=== PATIENT | female | born 1950 | race Hispanic/Latino ===

== ENCOUNTER 2017-01-14 14:15 | Outpatient (CLI) | payer MEDICAID ==
--- NOTE | 2017-01-15 08:31 | Magnetic Resonance Report ---
MRI CERVICAL SPINE WITHOUT CONTRAST: 01/14/17 14:30:00 CLINICAL: Neck pain. Herniated disc. TECHNIQUE: Sagittal T1,T2 and STIR and axial gradient T2* sequences on a 1.5 Jolie magnet. FINDINGS:Normal vertebral body alignment through T4. Mild degenerative change with slight decreased vertebral body height and small osteophytes from C3-4 through C6-7. The disc spaces are preserved. The marrow signal is normal. Spinal cord is normal size with normal signal. No cord lesion. A similar tonsils are in normal position. C2-3: Intact. C3-4:Small focal central disc protrusion is in partial effacement of the thecal sac but no cord compression. Left facet hypertrophy and mild left neural foraminal narrowing. C4-5: Mild circumferential disc bulge producing partial effacement of the thecal sac but no cord compression. Right facet hypertrophy and right uncal osteophytes producing moderate right neural foraminal narrowing. C5-6:Mild circumferential disc bulge and small central posterior osteophytes producing partial effacement of the thecal sac but no cord compression. Left facet hypertrophy but minimal neural foraminal narrowing. C6-7:Circumferential disc bulge producing partial effacement of the thecal sac but no cord compression. Mild bilateral facet hypertrophy and mild bilateral neural foraminal narrowing. C7-T1:Intact. IMPRESSION: 1. Small disc protrusions and disc bulges producing mild spinal canal stenosis from C3-4 through C6-7.2. Multilevel facet hypertrophy producing mild to moderate neural foraminal narrowing. The most significant narrowing is on the right at C4-5. 3. No cord lesion.
== END 2017-01-14 14:16 | disposition home or self-care (01) ==
LOC: MRI 14:15
PROVIDERS: ATTEND Psychiatry & Neurology Neurology
DX: M48.02 Spinal stenosis, cervical region (principal); M50.20 Other cervical disc displacement, unspecified cervical region; M47.892 Other spondylosis, cervical region; M50.21 Other cervical disc displacement, high cervical region
CPT/HCPCS: 72141

== ENCOUNTER 2017-05-16 17:32 | Emergency (ER) | payer OTHER, MEDICAID ==
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
[2017-05-16 23:25] VITALS: BP 133/87
[2017-05-16] MEDS ORDERED: TORADOL IM ONE (23:40)
== END 2017-05-17 01:46 | disposition home or self-care (01) ==
LOC: ED 17:32
DX: S46.912A Strain of unspecified muscle, fascia and tendon at shoulder and upper arm level, left arm, initial encounter (principal); M62.838 Other muscle spasm; E11.9 Type 2 diabetes mellitus without complications; J45.909 Unspecified asthma, uncomplicated; I10 Essential (primary) hypertension; Z88.5 Allergy status to narcotic agent; V49.49XA Driver injured in collision with other motor vehicles in traffic accident, initial encounter; Y93.89 Activity, other specified; Y92.89 Other specified places as the place of occurrence of the external cause; Y99.8 Other external cause status
CPT/HCPCS: 96372; 99282; J1885

== ENCOUNTER 2017-06-11 15:52 | Outpatient (CLI) | payer MEDICAID ==
--- NOTE | 2017-06-11 21:01 | XRay Report ---
FINAL REPORT PROCEDURE: XR KNEE BILAT 3V TECHNIQUE: Three views each knee HISTORY: PAIN IN RIGHT KNEE , SWELLING LT KNEE COMPARISON: No prior studies are available for comparison. FINDINGS: Soft tissue swelling each knee. Small suprapatellar effusion on the left no significant on the right. Moderate degenerative changes of each knee with meniscal calcifications no acute fracture IMPRESSION: No fracture seen
== END 2017-06-11 15:53 | disposition home or self-care (01) ==
LOC: XRAY 15:52
PROVIDERS: ATTEND Orthopaedic Surgery
DX: M17.0 Bilateral primary osteoarthritis of knee (principal)

== ENCOUNTER 2017-08-01 10:47 | Day surgery (SDC) | payer MEDICAID ==
[~2017-08-01 10:47] MED LIST: ANCEF/STERILE WATER 2 GM/20 ML IV NR; MARCAINE 0.5% INFILTRATI ONE
[2017-08-01] MEDS: LACTATED RINGERS 1,000 ML IV SCH ×2 (12:00→14:33)
[2017-08-01] MEDS ORDERED: DEPO-MEDROL ONE (12:34)
[2017-08-01] MEDS ORDERED: MARCAINE 0.5% INFILTRATI ONE ×2 (12:34→13:05)
--- NOTE | 2017-08-01 12:38 | Anesthesia Day of Surgery ---
Anesthesia Day of Surgery - Day of Surgery Patient Examined: Yes Patient H&P Reviewed: Yes Patient is NPO: Yes
--- NOTE | 2017-08-01 12:39 | Anesthesia Consultation ---
Anesthesia Consult and Med Hx Date of service: 08/01/17 - Airway Anesthetic Teeth Evaluation: Good ROM Head & Neck: Adequate Mental/Hyoid Distance: Adequate Mallampati Class: Class I Intubation Access Assessment: Good - Pulmonary Exam CTA: Yes - Cardiac Exam Cardiac Exam: RRR - Pre-Operative Health Status ASA Pre-Surgery Classification: ASA2 Proposed Anesthetic Plan: General - Pulmonary Hx Smoking: No Hx Asthma: Yes (NEB PRN) SOB: Yes (SOB) Hx Sleep Apnea: No (NGUYỄN PRE SCREEN HIGH RISK.) - Cardiovascular System Hx Hypertension: Yes (X 3 YRS) Hx Peripheral Vascular Disease: Yes (LEG PAIN,STENT RT LEG) - Central Nervous System Hx Back Pain: Yes (NECK PAIN) Hx Psychiatric Problems: Yes - Endocrine Hx Liver Disease: Yes Hx Thyroid Disease: Yes Hx Hypothyroidism: Yes Hx Hyperthyroidism: Yes (ON DAILY MEDS) - Other Systems Hx Cancer: No
[2017-08-01] MEDS ORDERED: SUBLIMAZE ONE (12:40)
[2017-08-01] MEDS ORDERED: DIPRIVAN 10 MG/ML IV ONE (12:43)
[2017-08-01] MEDS ORDERED: ZOFRAN ONE (12:55)
[2017-08-01] MEDS ORDERED: ePHEDrine SULFATE ONE (12:55)
[2017-08-01] MEDS ORDERED: XYLOCAINE MPF 2% ONE (13:00)
[2017-08-01] MEDS ORDERED: NACL 0.9% IR ONE (13:13)
[2017-08-01] MEDS ORDERED: ZOFRAN IV PRN (13:53)
--- NOTE | 2017-08-01 13:54 | Post Anesthesia Evaluation ---
- Post Anesthesia Evaluation Patient Participated: Yes Airway Patent: Yes Stable Respiratory Function: Yes Nausea/Vomiting: No Temp > 96.8F: Yes Pain Manageable: Yes Adequeate Hydration: Yes Anesthesia Complications: No
--- NOTE | 2017-08-01 13:57 | Procedure Note ---
Date of procedure: 08/01/17 Pre-op diagnosis: left carpal tunnel syndrome Post-op diagnosis: same Procedure: Left endoscopic carpal tunnel release Procedure The patient was brought to the OR and placed on the OR table in supine position following induction with Mac anesthesia the patient's left upper extremity was prepped and draped in the usual sterile manner. A timeout procedure was done to identify the patient and the correct operative site. The arm was exsanguinated followed by inflation of the pneumatic tourniquet to 250 mmHg. A volar incision was made at the distal wrist crease using loupe magnificati the superficial tendon sheath was identified and using the dilators the carpal canal was entered following this the arthroscope was inserted in line with the fourth metacarpal the transverse carpal ligament was identified next the knife blade assembly was elevated and the ligament was released from distal to proximal this the wound was irrigated and a second look was performed there did not appear to be any residual impinging soft tissue off the median nerve. Routine closure was performed routine postop dressings were applied the patient tolerated the procedure there were no complications she was sent to postanesthesia recovery in a stable condition Anesthesia: MAC Surgeon: NEMESIO JACKSON Estimated blood loss: minimal Condition: stable Disposition: PACU
[2017-08-01] MEDS: DILAUDID IV PRN ×2 (14:00→14:10)
[2017-08-01] MEDS ORDERED: NORCO 5/325 PO PRN (14:35)
[2017-08-01] MEDS ORDERED: NORCO 5/325 ONE (14:40)
[2017-08-01] MEDS ORDERED: BENADRYL IV NR (14:58)
[2017-08-01] MEDS ORDERED: BENADRYL ONE (14:59)
[2017-08-01 17:11] VITALS: BP 140/73
== END 2017-08-01 16:40 | disposition home or self-care (01) ==
LOC: OR 10:47
PROVIDERS: ATTEND Orthopaedic Surgery
DX: G56.02 Carpal tunnel syndrome, left upper limb (principal); J45.909 Unspecified asthma, uncomplicated; I10 Essential (primary) hypertension; K21.9 Gastro-esophageal reflux disease without esophagitis; F41.9 Anxiety disorder, unspecified; E78.00 Pure hypercholesterolemia, unspecified; G43.909 Migraine, unspecified, not intractable, without status migrainosus; I73.9 Peripheral vascular disease, unspecified; Z79.899 Other long term (current) drug therapy; Z90.710 Acquired absence of both cervix and uterus; Z98.890 Other specified postprocedural states; Z79.82 Long term (current) use of aspirin; Z87.891 Personal history of nicotine dependence
CPT/HCPCS: 29848; 36415; 82962; 84132; J0690; J1170; J1200; J2405; J2704; J3010; J7120; J1030

== ENCOUNTER 2017-08-15 15:47 | Outpatient (CLI) | payer MEDICAID ==
--- NOTE | 2017-08-15 16:55 | XRay Report ---
FINAL REPORT PROCEDURE: Right shoulder. TECHNIQUE: Three views. HISTORY: PAIN IN RIGHT SHOULDER COMPARISON: No prior studies are available for comparison. FINDINGS: The bones appear intact without fracture or dislocation. The joint spaces appear normal. The soft tissues are unremarkable. IMPRESSION: No significant abnormality.
--- NOTE | 2017-08-15 21:35 | XRay Report ---
FINAL REPORT PROCEDURE: Right wrist. TECHNIQUE: AP and lateral views. HISTORY: Right wrist pain. COMPARISON: No prior studies are available for comparison. FINDINGS: The bones appear intact without fracture or dislocation. The joint spaces appear satisfactory. The soft tissues are unremarkable. IMPRESSION: Normal study.
== END 2017-08-15 15:48 | disposition home or self-care (01) ==
LOC: XRAY 15:47
PROVIDERS: ATTEND Orthopaedic Surgery
DX: M25.531 Pain in right wrist (principal); M25.511 Pain in right shoulder

== ENCOUNTER 2017-10-01 12:37 | Emergency (ER) | payer MEDICAID ==
[2017-10-01 12:47] VITALS: BP 136/86
[2017-10-01] MEDS ORDERED: NORCO 10/325 ONE (15:12)
[2017-10-01] MEDS ORDERED: ZOFRAN ODT ONE (15:12)
[2017-10-01] MEDS ORDERED: TORADOL IM ONE (15:44)
[2017-10-01 15:50] LABS: Bilirubin,Urine NEG (Negative); Blood,Urine NEG (Negative); Color,Urine Straw (Yellow); Protein,Urine <15 mg/dL mg/dL (Negative); Urobilinogen,Urine < 2.0 mg/dL (<2.0)
--- NOTE | 2017-10-01 17:25 | XRay Report ---
FINAL REPORT EXAM: XR SPINE LUMBOSACRAL 2-3V HISTORY: back pain s/p fall TECHNIQUE: 3 views of the lumbar spine PRIORS: None. FINDINGS: Multifocal postoperative change. Prominent stool may reflect constipation. There is slight mural calcified atherosclerotic plaque in the abdominal aorta. Vertebral compression fracture: None Anterolisthesis: None Retrolisthesis: None Disc narrowing: None Degenerative change: Multilevel at the vertebral endplates and facet joints. IMPRESSION: No acute skeletal pathology Multifocal degenerative disc and joint disease Prominent stool may reflect constipation
--- NOTE | 2017-10-01 18:02 | Emergency Department Report ---
ED Back Pain/Injury HPI - General Chief Complaint: Back Pain/Injury Stated Complaint: BACK PAIN/LEG NUMBNESS Time Seen by Provider: 10/01/17 15:36 Source: patient Limitations: No Limitations - History of Present Illness Initial Comments: Patient is a 66-year-old female who is presenting with back pain. Patient states that she has chronic back pain she takes hydrocodone and Flexeril. Patient states this morning she could hardly get out of bed. Patient states pain is 10 out of 10. Patient states there was no falls today but she fell twice within the last week. Patient denies any bowel or bladder dysfunction. Patient denies fever. Patient states it hurts worse when she moves and is better when she is still. - Related Data Home Medications Medication Instructions Recorded Confirmed Last Taken ALPRAZolam [Xanax TAB] 1 mg PO PRN PRN 01/03/13 07/25/17 08/01/17 08:45 Atenolol [Tenormin] 25 mg PO BID 01/03/13 07/25/17 08/01/17 08:45 Gabapentin [Neurontin] 100 mg PO BID 01/03/13 07/25/17 07/31/17 Omeprazole Magnesium [PriLOSEC] 40 mg PO QDAY 01/03/13 08/01/17 08/01/17 08:45 HYDROcodone/APAP 5-325 [Stollings 1 each PO Q8HR PRN 02/18/13 07/25/17 08/01/17 08: 45 5-325 mg TAB] ALBUTEROL NEB's [Proventil 0.083% 1 unit INHALATION PRN PRN 11/05/15 08/01/17 NEBS] Aspirin [Aspirin BABY CHEW TAB] 81 mg PO QDAY 11/05/15 07/25/17 07/31/17 Cilostazol [Pletal] 100 mg PO BID 11/05/15 07/25/17 07/31/17 traMADol [Ultram 50 MG tab] 50 mg PO BID PRN 11/05/15 07/25/17 07/31/17 Methimazole 2.5 mg PO DAILY 12/08/15 07/25/17 07/31/17 Cyclobenzaprine HCl [Flexeril 5 MG 5 mg PO PRN PRN 07/25/17 07/25/17 07/31/17 TAB] Fluticasone [Flonase] 1 spray NS QDAY 07/25/17 07/25/17 07/31/17 Rosuvastatin Calcium [Crestor] 40 mg PO QHS 07/25/17 07/25/17 07/31/17 Spironolactone [Aldactone] 25 mg PO QDAY 07/25/17 07/25/17 07/31/17 Zolpidem [Ambien] 10 mg PO QHS 07/25/17 07/25/17 07/31/17 Previous Rx's Medication Instructions Recorded Last Taken Type HYDROcodone/ACETAMINOPHEN 1 each PO Q4-6H #20 tablet 08/01/17 Unknown Rx [Hydrocodon-Acetaminophen 5-325] Allergies Allergy/AdvReac Type Severity Reaction Status Date / Time codeine Allergy Hives Verified 01/03/13 15:28 ED Review of Systems ROS: Stated complaint: BACK PAIN/LEG NUMBNESS Other details as noted in HPI Comment: All other systems reviewed and negative ED Past Medical Hx - Past Medical History Hx Hypertension: Yes (X 3 YRS) Hx Diabetes: Yes (NO MEDS) Hx GERD: Yes Hx Liver Disease: Yes Hx Arthritis: Yes Hx Headaches / Migraines: Yes (MIGRAINES) Hx Kidney Stones: Yes Hx Asthma: Yes (NEB PRN) Hx HIV: No Additional medical history: "muscle disease"-weak in the heart, pneumonia 2017 - Surgical History Hx Coronary Stent: Yes Hx Cholecystectomy: Yes Additional Surgical History: sinus surgery. colon surgery. hysterecomty. carpal tunnel right wrist - Social History Smoking Status: Never Smoker Substance Use Type: None - Medications Home Medications: Home Medications Medication Instructions Recorded Confirmed Last Taken Type ALPRAZolam [Xanax TAB] 1 mg PO PRN PRN 01/03/13 07/25/17 08/01/17 08:45 History Atenolol [Tenormin] 25 mg PO BID 01/03/13 07/25/17 08/01/17 08:45 History Gabapentin [Neurontin] 100 mg PO BID 01/03/13 07/25/17 07/31/17 History Omeprazole Magnesium [PriLOSEC] 40 mg PO QDAY 01/03/13 08/01/17 08/01/17 08:45 History HYDROcodone/APAP 5-325 [Stollings 1 each PO Q8HR PRN 02/18/13 07/25/17 08/01/17 08: 45 History 5-325 mg TAB] ALBUTEROL NEB's [Proventil 0.083% 1 unit INHALATION PRN PRN 11/05/15 08/01/17 History NEBS] Aspirin [Aspirin BABY CHEW TAB] 81 mg PO QDAY 11/05/15 07/25/17 07/31/17 History Cilostazol [Pletal] 100 mg PO BID 11/05/15 07/25/17 07/31/17 History traMADol [Ultram 50 MG tab] 50 mg PO BID PRN 11/05/15 07/25/17 07/31/17 History Methimazole 2.5 mg PO DAILY 12/08/15 07/25/17 07/31/17 History Cyclobenzaprine HCl [Flexeril 5 MG 5 mg PO PRN PRN 07/25/17 07/25/17 07/31/17 History TAB] Fluticasone [Flonase] 1 spray NS QDAY 07/25/17 07/25/17 07/31/17 History Rosuvastatin Calcium [Crestor] 40 mg PO QHS 07/25/17 07/25/17 07/31/17 History Spironolactone [Aldactone] 25 mg PO QDAY 07/25/17 07/25/17 07/31/17 History Zolpidem [Ambien] 10 mg PO QHS 07/25/17 07/25/17 07/31/17 History HYDROcodone/ACETAMINOPHEN 1 each PO Q4-6H #20 tablet 08/01/17 Unknown Rx [Hydrocodon-Acetaminophen 5-325] ED Physical Exam - General Limitations: No Limitations General appearance: alert, in no apparent distress - Head Head exam: Present: atraumatic, normocephalic - Eye Eye exam: Present: normal appearance - ENT ENT exam: Present: mucous membranes moist - Neck Neck exam: Present: normal inspection - Respiratory Respiratory exam: Present: normal lung sounds bilaterally. Absent: respiratory distress - Cardiovascular Cardiovascular Exam: Present: regular rate, normal rhythm. Absent: systolic murmur, diastolic murmur, rubs, gallop - GI/Abdominal GI/Abdominal exam: Present: soft, normal bowel sounds. Absent: distended, tenderness, guarding - Extremities Exam Extremities exam: Present: normal inspection - Back Exam Back exam: Present: normal inspection, tenderness (diffuse lumbar) - Neurological Exam Neurological exam: Present: alert, oriented X3 - Psychiatric Psychiatric exam: Present: normal affect, normal mood - Skin Skin exam: Present: warm, dry, intact, normal color. Absent: rash ED Course Vital Signs 10/01/17 12:40 Temperature 97.5 F L Pulse Rate 81 Respiratory 18 Rate Blood Pressure 136/86 O2 Sat by Pulse 18 L Oximetry ED Medical Decision Making - Radiology Data X-ray of the lumbar spine shows diffuse degenerative changes - Medical Decision Making Patient was given a Stollings shot of Toradol which did help her pain. Patient states she has pain pills and she has muscle relaxants at home. Patient was referred to a spinal surgeon for further management. Critical care attestation.: If time is entered above; I have spent that time in minutes in the direct care of this critically ill patient, excluding procedure time. ED Disposition Clinical Impression: Chronic back pain Qualifiers: Back pain location: low back pain Back pain laterality: unspecified Sciatica presence: without sciatica Qualified Code(s): M54.5 - Low back pain; G89.29 - Other chronic pain Disposition: DC-01 TO HOME OR SELFCARE Is pt being admited?: No Does the pt Need Aspirin: No Condition: Stable Referrals: MIRIAM VOGT MD [Referring] - 3-5 Days
--- NOTE | 2017-10-01 22:35 | Consultation ---
HISTORY OF PRESENT ILLNESS: This is a 66-year-old white female seen in the Emergency Room at [facility]. This patient is ordinarily followed by me in the office. I received a phone call concerning the patient's neurological symptoms, being unable to move both legs. On arrival in the Emergency Room, the patient provided 2 to 3-day history of being fatigued, experiencing energy problems, not being able to finish work around the house. She apparently woke up this morning, not able to move either leg. What is curious is that for the last several months, she has had periods of complete incontinence of bowel and bladder. 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 She denied any seizure, no fall, although she did have perhaps a slip injury when she was cleaning out the garage, twisting her lower back area and she states she feels like she may have herniated disk in lower back area. She does have intact sensation in her legs. She is weak in her legs. She has problems with walking and did state this morning what was quite different was that she was not able to stand and use her legs, but she does have intact sensation. She has not had symptoms such as this in the past. Her friend that she lives with is here with her. He thinks that she may have gotten exhausted and simply worked too hard over the past couple of days, sweeping out the garage. PHYSICAL EXAMINATION: NEUROLOGIC: On my examination of the patient, she is alert. She has 1+ and symmetrical reflexes. She has positional movement of the legs that is to say when they are propped up in a flexed position. She has motor tone in them, but I did not attempt to stand the patient. She has had x-rays of her back. Those results are not yet available. On seeing her, she does have intact motor movement with dorsiflexion and plantarflexion, flexion and extension at the hips. Cranial nerves 2-12 are intact. She is slightly sleepy. According to her, she did receive some medication for pain earlier today and feels a little sedated, but otherwise is quite responsive. IMPRESSION: New onset of bilateral leg weakness, which is certainly different than previous. I would recommend review of the x-rays at the discretion of the Emergency Room physician. She may need admission for further evaluation. One curious aspect to this case is bowel and bladder incontinence. This clearly predated the present issue with her leg strength. In the past, she has had multiple episodes of spinal radiculopathy in both the cervical, thoracic, and lumbar region and has had multiple workups for central canal stenosis, cervical and lumbar radiculopathy without any evidence, however, of a compression fracture or tumor. My recommendation is to further review x-rays, and we will make a determination after additional workup. JOB# [id number] CLARE/CAPRICE
== END 2017-10-01 18:17 | disposition home or self-care (01) ==
LOC: ED 12:37
DX: G89.29 Other chronic pain (principal); M54.9 Dorsalgia, unspecified; I10 Essential (primary) hypertension; E11.9 Type 2 diabetes mellitus without complications; K21.9 Gastro-esophageal reflux disease without esophagitis; M19.90 Unspecified osteoarthritis, unspecified site; G43.909 Migraine, unspecified, not intractable, without status migrainosus; J45.909 Unspecified asthma, uncomplicated; Z95.1 Presence of aortocoronary bypass graft; Z79.82 Long term (current) use of aspirin; Z88.6 Allergy status to analgesic agent
CPT/HCPCS: 72100; 81001; 96372; 99283; J1885; Q0162

== ENCOUNTER 2017-10-07 16:58 | Outpatient (CLI) | payer MEDICAID ==
--- NOTE | 2017-10-07 20:09 | XRay Report ---
FINAL REPORT EXAM: XR FOOT 3+V LT HISTORY: SUPERFICIAL FORIEGN BODY TECHNIQUE: 3 views Left foot PRIORS: None. FINDINGS: No fracture or dislocation identified. Joint spaces are within normal limits. No erosive bony change identified. No bony lesions are identified. No radiopaque foreign bodies are seen. Noted is a plantar calcaneal enthesophyte IMPRESSION: Heel spur No radiopaque foreign body identified
== END 2017-10-07 16:59 | disposition home or self-care (01) ==
LOC: XRAY 16:58
PROVIDERS: ATTEND Nurse Practitioner
DX: S90.851A Superficial foreign body, right foot, initial encounter (principal); M77.32 Calcaneal spur, left foot; F41.9 Anxiety disorder, unspecified; I10 Essential (primary) hypertension; E78.00 Pure hypercholesterolemia, unspecified; G47.30 Sleep apnea, unspecified; E03.9 Hypothyroidism, unspecified; Z98.890 Other specified postprocedural states; X58.XXXA Exposure to other specified factors, initial encounter; Y93.89 Activity, other specified; Y92.89 Other specified places as the place of occurrence of the external cause; Y99.8 Other external cause status

== ENCOUNTER 2017-10-14 12:08 | Outpatient (CLI) | payer MEDICAID ==
--- NOTE | 2017-10-14 13:36 | XRay Report ---
RIGHT WRIST, 3 VIEWS: RIGHT HAND, 3 VIEWS: History: Wrist pain, hand pain. Borderline to mild osteopenia is suspected in mild osteoarthritic changes are identified throughout the wrist and fingers. No erosive joint pathology. No evidence for fracture, malalignment or bone lesion. The soft tissues are unremarkable. IMPRESSION: No acute process. Borderline mild osteopenia. Mild osteoarthritis.
== END 2017-10-14 12:09 | disposition home or self-care (01) ==
LOC: XRAY 12:08
PROVIDERS: ATTEND Orthopaedic Surgery
DX: M25.532 Pain in left wrist (principal); M79.642 Pain in left hand; I73.9 Peripheral vascular disease, unspecified; F41.9 Anxiety disorder, unspecified

== ENCOUNTER 2017-10-31 16:00 | Outpatient (CLI) | payer MEDICARE ==
--- NOTE | 2017-11-01 08:15 | Magnetic Resonance Report ---
MR LOWER EXTREMITY JOINT LEFT WITHOUT CONTRAST HISTORY: Pain in left knee. TECHNIQUE: Multisequence, multiplanar MRI without contrast was performed through the left knee. COMPARISON: Bilateral knee films dated 06/11/17. FINDINGS: A moderate joint effusion is identified which extends to the suprapatellar bursa. A popliteal cyst is identified measuring 3.3 x 0.7 x 1.1 cm. The body of the medial meniscus is abnormal. There appears to be a horizontal tear with a medial flipped meniscus. There is also a vertical tear near the junction of the body and posterior horn. The lateral meniscus is unremarkable. The ACL, PCL, MCL, LCL complex and extensor complex are intact and unremarkable. There is mild to moderate cartilage thinning throughout all 3 compartments of the knee. There is suggestion of vague small osteochondral defect or focal complete cartilage loss in the medial retropatellar cartilage. There is subtle subchondral edema in the medial patella but no unstable fragment is identified. There is no evidence for acute fracture or suspicious bony lesion. 6 mm subchondral degenerative cyst in the posterior medial tibial plateau is noted. IMPRESSION: Joint effusion and popliteal cyst. Complex tear involving the body of the medial meniscus. A medial flipped meniscus is suspected. Chondromalacia patella, medial facet more affected. Moderate diffuse cartilage loss consistent with osteoarthritis.
--- NOTE | 2017-11-01 08:24 | Magnetic Resonance Report ---
MR UPPER EXTREMITY JOINT RIGHT WITHOUT CONTRAST HISTORY: Pain in right shoulder. TECHNIQUE: Multisequence, multiplanar MRI without contrast was performed through the right shoulder. COMPARISON: Right shoulder films dated 08/15/17. FINDINGS: The distal supraspinatus tendon is abnormal demonstrating diffuse increased signal and thickening consistent with underlying tendinosis. I suspect at least a 50% thickness partial tear along the articular surface of the distal supraspinatus tendon. I also suspect a pinhole full-thickness tear is present in this region. No large tear with retraction. There also appears to be an intrasubstance tear of the distal supraspinatus tendon at its insertion site on the proximal humerus. There is also suggestion of a focal full-thickness tear in the infraspinatus tendon distally measuring 3 mm. The subscapularis tendon and teres minor tendon are within normal limits. There is poor visualization of the horizontal portion of the long head of the biceps tendon but it appears intact. Its attachments on the superior labrum is within normal limits. No gross labral abnormality or SLAP lesion is identified. Moderate osteoarthritic changes are identified. Mild inferior spurring at the a.c. joint and small acromial spur are identified. 8mm subchondral degenerative cyst in the lateral humeral head just beneath the long head of the biceps tendon is noted. No evidence for fracture or suspicious bone lesion. Small joint effusion and small fluid in the subdeltoid bursa are identified. IMPRESSION: Osteoarthritis. Abnormal distal supraspinatus tendon, and to a lesser extent, the infraspinatus tendon. Focal full-thickness tears in both tendons are suspected as outlined above. There is also moderate underlying tendinosis of the distal supraspinatus tendon. Joint effusion. Small bursal fluid.
== END 2017-10-31 16:01 | disposition home or self-care (01) ==
LOC: MRI 16:00
PROVIDERS: ATTEND Orthopaedic Surgery
DX: M19.011 Primary osteoarthritis, right shoulder (principal); M25.411 Effusion, right shoulder; M25.462 Effusion, left knee; M71.22 Synovial cyst of popliteal space [Baker], left knee; I73.9 Peripheral vascular disease, unspecified; F41.9 Anxiety disorder, unspecified; I10 Essential (primary) hypertension; E78.00 Pure hypercholesterolemia, unspecified; J45.909 Unspecified asthma, uncomplicated; E03.9 Hypothyroidism, unspecified; Z88.6 Allergy status to analgesic agent
CPT/HCPCS: 73721

== ENCOUNTER 2017-11-07 16:18 | Outpatient (CLI) | payer MEDICARE ==
--- NOTE | 2017-11-07 16:56 | XRay Report ---
FINAL REPORT EXAM: XR FOOT 3+V RT HISTORY: PAIN IN RIGHT FOOT TECHNIQUE: 3 views of right foot. PRIORS: None. FINDINGS: Generalized osteopenia. No apparent fracture or dislocation. Joint spaces maintained. Mild plantar calcaneal spurring. Soft tissues grossly unremarkable. IMPRESSION: 1. No acute osseous abnormality.
== END 2017-11-07 16:19 | disposition home or self-care (01) ==
LOC: XRAY 16:18
PROVIDERS: ATTEND Nurse Practitioner
DX: M77.31 Calcaneal spur, right foot (principal); M85.88 Other specified disorders of bone density and structure, other site; I10 Essential (primary) hypertension; E78.2 Mixed hyperlipidemia; M81.0 Age-related osteoporosis without current pathological fracture; I73.9 Peripheral vascular disease, unspecified; F41.9 Anxiety disorder, unspecified; Z88.5 Allergy status to narcotic agent

== ENCOUNTER 2017-12-05 06:09 | Day surgery (SDC) | payer MEDICARE ==
[~2017-12-05 06:09] MED LIST changes: -ANCEF/STERILE WATER 2 GM/20 ML IV NR; +DEPO-Medrol INTRA-ARTI ONE; -MARCAINE 0.5% INFILTRATI ONE; +MARCAINE-EPI/PF 0.5%-1:200,000 IJ ONE
[2017-12-05] MEDS ORDERED: XYLOCAINE MPF 2% ONE (07:11)
[2017-12-05] MEDS ORDERED: DIPRIVAN 10 MG/ML IV ONE (07:11)
[2017-12-05] MEDS ORDERED: DILAUDID ONE ×2 (07:15→10:07)
[2017-12-05] MEDS ORDERED: ZOFRAN ONE (07:16)
[2017-12-05] MEDS ORDERED: DECADRON ONE (07:16)
--- NOTE | 2017-12-05 07:27 | Anesthesia Day of Surgery ---
Anesthesia Day of Surgery - Day of Surgery Patient Examined: Yes Patient H&P Reviewed: Yes Patient is NPO: Yes
--- NOTE | 2017-12-05 07:27 | Anesthesia Consultation ---
Anesthesia Consult and Med Hx Date of service: 12/05/17 - Airway Anesthetic Teeth Evaluation: Dentures ROM Head & Neck: Adequate Mental/Hyoid Distance: Adequate Mallampati Class: Class I Intubation Access Assessment: Probably Good - Pulmonary Exam CTA: Yes - Cardiac Exam Cardiac Exam: RRR - Pre-Operative Health Status ASA Pre-Surgery Classification: ASA2 Proposed Anesthetic Plan: General - Pulmonary Hx Smoking: Yes (STOPPED X 34 YRS) Hx Asthma: Yes (NEB PRN) SOB: Yes (SOB) Hx Sleep Apnea: No (NGUYỄN PRE SCREEN HIGH RISK.) - Cardiovascular System Hx Hypertension: Yes (X 3 YRS) Hx Peripheral Vascular Disease: Yes (LEG PAIN,STENT RT LEG) - Central Nervous System Hx Back Pain: Yes (NECK AND BACK PAIN- CHRONIC) Hx Psychiatric Problems: Yes - Endocrine Hx Liver Disease: Yes Hx Thyroid Disease: Yes - Other Systems Hx Cancer: No - Additional Comments Anesthesia Medical History Comments: Hx PONV.
[2017-12-05] MEDS ORDERED: VERSED IV PRN (07:28)
[2017-12-05] MEDS ORDERED: MARCAINE 0.5% INFILTRATI ONE (07:36)
[2017-12-05] MEDS ORDERED: DEPO-Medrol ONE (07:42)
[2017-12-05] MEDS ORDERED: MARCAINE-EPI 0.5%-1:200,000 INFILTRATI ONE (07:43)
[2017-12-05] MEDS ORDERED: ANCEF/STERILE WATER 2 GM/20 ML IV NR (07:50)
[2017-12-05] MEDS ORDERED: NACL 0.9% 1000 ML 1,000 ML IV SCH (08:00)
[2017-12-05] MEDS ORDERED: NACL 0.9% 1000 ML 1,000 ML ONE (09:00)
[2017-12-05] MEDS ORDERED: DEPO-Medrol INTRA-ARTI ONE (09:35)
[2017-12-05] MEDS ORDERED: MARCAINE-EPI/PF 0.5%-1:200,000 IJ ONE (09:35)
[2017-12-05] MEDS ORDERED: VERSED ONE (09:55)
--- NOTE | 2017-12-05 09:58 | Procedure Note ---
Date of procedure: 12/05/17 Pre-op diagnosis: internal derangement left knee Post-op diagnosis: other (torn medial and lateral meniscus) Procedure: Arthroscopy left knee partial medial and lateral meniscectomies Procedure Patient was brought to the or pleurisy or tubal supine position following induction and intubation anesthesia patient's left lower extremity was prepped and draped in the usual sterile manner , procedure was done to identify the patient and correct operative site. The leg was exsanguinated followed by instillation of the pneumatic tourniquet to 300 mmHg next routine arthroscopic portals were made following the introduction of the arthroscope and insufflation of the were normal saline solution examination revealed these findings #1 patient was noted review of slept tears in the posterior horn medial meniscus as well as grade 3 chondromalacia involving the distal portion of the medial condyle femur just slightly anterior to the posterior horn medial meniscus these 2 areas were debrided using arthroscopic shaver was taken to debrided back to healthy-appearing cartilage tissue The intercondylar notch was examined patient was noted to have intact anterior cruciate ligament PCL ligaments following this the knee was placed in a figure for position the lateral meniscus was seen and appeared to have again reveal flap tears noted in the posterior tibial portion of these tears were also debrided using the arthroscopic shaver the articular cartilage appeared to be in a relatively mild stable degeneration in addition the arthroscope was placed in the suprapatellar pouch and the epidural femoral joint was inspected there were no obvious pathology noted here following debridement and copious irrigation the arthroscopic instruments were removed via stab wounds were repaired with 3-0 nylon next a mixture of Depo-Medrol and Marcaine was injected followed by application of routine postop dressings. Patient tolerated the procedure minimal complications she was sent to postanesthesia recovery. Anesthesia: MAC Surgeon: NEMESIO JACKSON Estimated blood loss: minimal Condition: stable Disposition: PACU
[2017-12-05] MEDS ORDERED: PERCOCET 5/325 PO PRN (10:03)
[2017-12-05] MEDS ORDERED: ZOFRAN IV PRN (10:03)
[2017-12-05] MEDS ORDERED: TORADOL IV PRN (10:03)
[2017-12-05] MEDS: DILAUDID IV PRN ×3 (10:05→10:48)
[2017-12-05] MEDS ORDERED: TORADOL ONE (10:07)
[2017-12-05 11:42] VITALS: BP 113/61
== END 2017-12-05 14:00 | disposition home or self-care (01) ==
LOC: OR 06:09
PROVIDERS: ATTEND Orthopaedic Surgery
DX: S83.242A Other tear of medial meniscus, current injury, left knee, initial encounter (principal); S83.282A Other tear of lateral meniscus, current injury, left knee, initial encounter; M94.262 Chondromalacia, left knee; F41.9 Anxiety disorder, unspecified; E78.00 Pure hypercholesterolemia, unspecified; J45.909 Unspecified asthma, uncomplicated; G47.33 Obstructive sleep apnea (adult) (pediatric); K21.9 Gastro-esophageal reflux disease without esophagitis; M19.90 Unspecified osteoarthritis, unspecified site; E03.9 Hypothyroidism, unspecified; F32.9 Major depressive disorder, single episode, unspecified; Z87.891 Personal history of nicotine dependence; Z79.899 Other long term (current) drug therapy; Z79.82 Long term (current) use of aspirin; Z88.5 Allergy status to narcotic agent; Z88.8 Allergy status to other drugs, medicaments and biological substances; Z98.890 Other specified postprocedural states; Z90.49 Acquired absence of other specified parts of digestive tract; Z90.710 Acquired absence of both cervix and uterus; Z87.442 Personal history of urinary calculi; Z83.3 Family history of diabetes mellitus; Z82.61 Family history of arthritis; Z82.49 Family history of ischemic heart disease and other diseases of the circulatory system; V89.2XXA Person injured in unspecified motor-vehicle accident, traffic, initial encounter; Y93.89 Activity, other specified; Y92.89 Other specified places as the place of occurrence of the external cause; Y99.8 Other external cause status
CPT/HCPCS: 29882; 36415; 82962; 84132; 93005; 93010; J0690; J1040; J1100; J1170; J1885; J2250; J2405; J2704; J7030; J1030

== ENCOUNTER 2017-12-14 13:17 | Emergency (ER) | payer MEDICARE ==
[2017-12-14 13:31] VITALS: BP 117/69
--- NOTE | 2017-12-14 14:47 | XRay Report ---
FINAL REPORT EXAM: XR KNEE 3V LT HISTORY: post op left knee surgery 01-05-18, left knee drain TECHNIQUE: Frontal and lateral views of left knee. PRIORS: 11 June 2017. FINDINGS: Diffuse soft tissue emphysema noted about the knee and probably within the knee joint and mild surrounding soft tissue edema probably postsurgical. Mild medial and patellofemoral joint space narrowing and marginal spurring. No acute fracture, dislocation or obvious osseous destruction. IMPRESSION: 1. Postsurgical and mild degenerative changes.
--- NOTE | 2017-12-14 16:00 | Emergency Department Report ---
ED Extremity Problem HPI - General Chief complaint: Extremity Injury, Lower Stated complaint: RT KNEE INFECTION Time Seen by Provider: 12/14/17 15:19 Source: patient, family Mode of arrival: Wheelchair Limitations: Physical Limitation - History of Present Illness Initial comments: Patient is a 67-year-old female who is presenting with left knee pain. Patient had surgery on 12/05/2017 about the [place]. The laparoscopic surgery. Patient states for the last 2 days she has a yellow colored liquid coming from one of the wounds. Patient has some increased pain as well. Patient denies any fevers chills nausea vomiting or diarrhea at this time. - Related Data Home Medications Medication Instructions Recorded Confirmed Last Taken ALPRAZolam [Xanax TAB] 1 mg PO PRN PRN 01/03/13 12/02/17 12/04/17 Atenolol [Tenormin] 25 mg PO BID 01/03/13 12/05/17 12/05/17 05:15 Gabapentin [Neurontin] 100 mg PO BID 01/03/13 12/05/17 12/04/17 Omeprazole Magnesium [PriLOSEC] 40 mg PO QDAY 01/03/13 12/05/17 12/05/17 05:15 HYDROcodone/APAP 5-325 [[place] 1 each PO Q8HR PRN 02/18/13 12/05/17 12/05/17 05: 15 5-325 mg TAB] ALBUTEROL NEB's [Proventil 0.083% 1 unit INHALATION PRN PRN 11/05/15 12/05/17 NEBS] Aspirin [Aspirin BABY CHEW TAB] 81 mg PO QDAY 11/05/15 12/05/17 1 Week Ago ~11/28/17 Cilostazol [Pletal] 100 mg PO BID 11/05/15 12/02/17 12/04/17 traMADol [Ultram 50 MG tab] 50 mg PO BID PRN 11/05/15 12/02/17 12/04/17 methIMAzole [Methimazole] 2.5 mg PO DAILY 12/08/15 12/02/17 12/04/17 Fluticasone [Flonase] 1 spray NS QDAY 07/25/17 12/02/17 12/04/17 Rosuvastatin Calcium [Crestor] 40 mg PO QHS 07/25/17 12/02/17 12/04/17 Spironolactone [Aldactone] 25 mg PO QDAY 07/25/17 12/02/17 12/04/17 Zolpidem [Ambien] 10 mg PO QHS 07/25/17 12/02/17 12/04/17 Previous Rx's Medication Instructions Recorded Last Taken Type HYDROcodone/APAP 5-325 [[place] 1 each PO Q4HR PRN #20 tablet 12/05/17 Unknown Rx 5-325 mg TAB] Clindamycin [Clindamycin CAP] 300 mg PO Q8H 7 Days cap 12/14/17 Unknown Rx Ibuprofen [Motrin] 600 mg PO Q8H PRN #20 tablet 12/14/17 Unknown Rx Allergies Allergy/AdvReac Type Severity Reaction Status Date / Time codeine Allergy Hives Verified 01/03/13 15:28 cyclobenzaprine Allergy slows her Verified 12/05/17 07:21 [From Flexeril] breathing ED Review of Systems ROS: Stated complaint: RT KNEE INFECTION Other details as noted in HPI Comment: All other systems reviewed and negative ED Past Medical Hx - Past Medical History Previous Medical History?: Yes Hx Hypertension: Yes (X 3 YRS) Hx Diabetes: Yes (NO MEDS) Hx GERD: Yes Hx Liver Disease: Yes Hx Arthritis: Yes Hx Headaches / Migraines: Yes (MIGRAINES) Hx Kidney Stones: Yes Hx Asthma: Yes (NEB PRN) Hx HIV: No Additional medical history: "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 colon surgery. hysterecomty. carpal tunnel right wrist - Social History Smoking Status: Former Smoker Substance Use Type: Prescribed - Medications Home Medications: Home Medications Medication Instructions Recorded Confirmed Last Taken Type ALPRAZolam [Xanax TAB] 1 mg PO PRN PRN 01/03/13 12/02/17 12/04/17 History Atenolol [Tenormin] 25 mg PO BID 01/03/13 12/05/17 12/05/17 05:15 History Gabapentin [Neurontin] 100 mg PO BID 01/03/13 12/05/17 12/04/17 History Omeprazole Magnesium [PriLOSEC] 40 mg PO QDAY 01/03/13 12/05/17 12/05/17 05:15 History HYDROcodone/APAP 5-325 [[place] 1 each PO Q8HR PRN 02/18/13 12/05/17 12/05/17 05: 15 History 5-325 mg TAB] ALBUTEROL NEB's [Proventil 0.083% 1 unit INHALATION PRN PRN 11/05/15 12/05/17 History NEBS] Aspirin [Aspirin BABY CHEW TAB] 81 mg PO QDAY 11/05/15 12/05/17 1 Week Ago History ~11/28/17 Cilostazol [Pletal] 100 mg PO BID 11/05/15 12/02/17 12/04/17 History traMADol [Ultram 50 MG tab] 50 mg PO BID PRN 11/05/15 12/02/17 12/04/17 History methIMAzole [Methimazole] 2.5 mg PO DAILY 12/08/15 12/02/17 12/04/17 History Fluticasone [Flonase] 1 spray NS QDAY 07/25/17 12/02/17 12/04/17 History Rosuvastatin Calcium [Crestor] 40 mg PO QHS 07/25/17 12/02/17 12/04/17 History Spironolactone [Aldactone] 25 mg PO QDAY 07/25/17 12/02/17 12/04/17 History Zolpidem [Ambien] 10 mg PO QHS 07/25/17 12/02/17 12/04/17 History HYDROcodone/APAP 5-325 [[place] 1 each PO Q4HR PRN #20 tablet 12/05/17 Unknown Rx 5-325 mg TAB] Clindamycin [Clindamycin CAP] 300 mg PO Q8H 7 Days cap 12/14/17 Unknown Rx Ibuprofen [Motrin] 600 mg PO Q8H PRN #20 tablet 12/14/17 Unknown Rx ED Physical Exam - General Limitations: Physical Limitation General appearance: alert, in no apparent distress - Head Head exam: Present: atraumatic, normocephalic - Eye Eye exam: Present: normal appearance - ENT ENT exam: Present: mucous membranes moist - Neck Neck exam: Present: normal inspection - Respiratory Respiratory exam: Present: normal lung sounds bilaterally. Absent: respiratory distress - Cardiovascular Cardiovascular Exam: Present: regular rate, normal rhythm. Absent: systolic murmur, diastolic murmur, rubs, gallop - GI/Abdominal GI/Abdominal exam: Present: soft, normal bowel sounds - Extremities Exam Extremities exam: Present: normal inspection, joint swelling (chest left knee does show some mild bruising and mild swelling. One of the distal wounds there is a small amount of serous drainage present. There is some tenderness as well. ) - Back Exam Back exam: Present: normal inspection - Neurological Exam Neurological exam: Present: alert, oriented X3 - Psychiatric Psychiatric exam: Present: normal affect, normal mood - Skin Skin exam: Present: warm, dry, intact, normal color. Absent: rash ED Course Vital Signs 12/14/17 13:26 Temperature 98.5 F Pulse Rate 64 Respiratory 18 Rate Blood Pressure 117/69 O2 Sat by Pulse 98 Oximetry ED Medical Decision Making - Medical Decision Making Patient is approximately one week status post surgery to her left knee. Patient has some serous drainage from the [place] scalping wound. Patient's knee does not appear to be infected at this time however advice will be ordered also she does not acquired infection since there is some wound dehiscence. Patient will be referred back to Dr. Singh for a recheck. Critical care attestation.: If time is entered above; I have spent that time in minutes in the direct care of this critically ill patient, excluding procedure time. ED Disposition Clinical Impression: Wound dehiscence Swelling of surgical site Qualifiers: Encounter type: initial encounter Qualified Code(s): T81.89XA - Other complications of procedures, not elsewhere classified, initial encounter; R60.9 - Edema, unspecified Disposition: - TO HOME OR SELFCARE Is pt being admited?: No Does the pt Need Aspirin: No Condition: Stable Additional Instructions: Urine knee wound does have a small opening that is allowing some of the serous fluid draining. Antibiotics will be started to make sure that bacteria cannot get in this wound and cause infection of the knee. Referrals: NEMESIO SINGH MD [Staff Physician] - 3-5 Days Time of Disposition: 16:00
== END 2017-12-14 16:20 | disposition home or self-care (01) ==
LOC: ED 13:17
DX: T81.89XA Other complications of procedures, not elsewhere classified, initial encounter (principal); T81.30XA Disruption of wound, unspecified, initial encounter; I10 Essential (primary) hypertension; E11.9 Type 2 diabetes mellitus without complications; K21.9 Gastro-esophageal reflux disease without esophagitis; G43.909 Migraine, unspecified, not intractable, without status migrainosus; Z87.442 Personal history of urinary calculi; M19.90 Unspecified osteoarthritis, unspecified site; Z87.891 Personal history of nicotine dependence; Z90.89 Acquired absence of other organs; Y83.8 Other surgical procedures as the cause of abnormal reaction of the patient, or of later complication, without mention of misadventure at the time of the procedure

== ENCOUNTER 2018-01-17 12:52 | Outpatient (CLI) | payer MEDICARE ==
--- NOTE | 2018-01-21 12:09 | Vascular Lab Report ---
Left Lower Extremity Venous Duplex Study: Reason for Exam: Deep venous thrombosis. Comments on the Right: A limited duplex study was done of the proximal veins of the right lower extremity. All veins visualized are freely compressible without evidence of internal echogenicity. Flow is spontaneous and phasic throughout. No evidence of acute or chronic thrombus is seen in any of the vessels visualized. Comments on the Left: All veins visualized are freely compressible without evidence of internal echogenicity. Flow is spontaneous and phasic throughout. No evidence of acute or chronic thrombus is seen in any of the vessels visualized. A soft tissue change in the left knee area is consistent with a Maurice's cyst. Impression: No evidence of acute or chronic deep venous thrombosis in the left lower extremity. A soft tissue change in the left knee area is consistent with a Maurice's cyst.
== END 2018-01-17 12:53 | disposition home or self-care (01) ==
LOC: VAS 12:52
PROVIDERS: ATTEND Orthopaedic Surgery
DX: I82.409 Acute embolism and thrombosis of unspecified deep veins of unspecified lower extremity (principal)